=== PATIENT | female | born 2000 | race Hispanic/Latino ===

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

== ENCOUNTER 2020-05-26 16:51 | Day surgery (SDC) | payer OTHER ==
[2020-05-26] MEDS ORDERED: hydrALAZINE 20 MG/ML VIAL SLOW IVP PRN (18:17)
--- NOTE | 2020-05-26 19:28 | ULT ---
LIMITED OB ULTRASOUND: History: 22-week intrauterine . Decreased movement. Spotting. Comparison: None Technique: Sagittal and transverse imaging of the gravid uterus is performed. FINDINGS: Limited evaluation of the cervix. Cervical length is at the lower limits of normal measuring 3.5 cm. There may be a small amount of fluid within the cervix. Presentation: Cephalic Placenta: Posterior. No obvious previa. heart tones: 147 beats/minute. BPD: 5.48 cm, 22 weeks 5 days HC: 20.48 cm, 22 weeks 4 days Abdominal circumference: 17.75 cm, 22 weeks 4 days Femur length: 3.77 cm, 22 weeks 0 days Estimated weight is 502 grams, +/- 74 grams. Amniotic fluid index is 14 cm. Average age by sonography is 22 weeks 3 days. IMPRESSION: 1. Shortened cervix with a small amount of fluid. 2. Single intrauterine gestation with heart tones. 3. Average age by sonography is 22 weeks 3 days. 4. Posterior placenta. Limited evaluation for the presence or absence of previa. POS: [facility]
--- NOTE | 2020-05-27 | SS ---
DATE OF ADMISSION: 05/26/2020 DATE OF DISCHARGE: 05/26/2020 LABOR AND DELIVERY TRIAGE NOTE. REGULAR PHYSICIAN: Elizabeth Batres MD EVALUATING PHYSICIAN: Armando Levi MD. CHIEF COMPLAINT: Decreased movement, spotting. HISTORY OF PRESENT ILLNESS: Ms. Freedman is a 20-year-old white G1, P0 with an estimated date of confinement of 09/26/2020, who presents complaining of decreased movement over the last 24 hours. Of note also is the fact that she reported spotting after intercourse 4 days ago. At the present time, she denies active vaginal bleeding or leakage of fluid. Her care has been with Dr. Batres and has been reportedly uncomplicated. PAST MEDICAL HISTORY: None. PAST SURGICAL HISTORY: None. CURRENT MEDICATIONS: vitamins. ALLERGIES: NO KNOWN ALLERGIES. SOCIAL HISTORY: Denies tobacco, alcohol, or drug use. FAMILY HISTORY: Unremarkable. REVIEW OF SYSTEMS: Denies nausea, vomiting, fever, chills, ruptured membranes or heavy vaginal bleeding at present. PHYSICAL EXAMINATION: VITAL SIGNS: In triage her vital signs are stable. She is afebrile. GENERAL: She is pleasant and in no distress. ABDOMEN: Soft, nontender, and gravid. heart tones are detected. No significant uterine activity seen. IMAGING: Ultrasound is obtained secondary to her history of bleeding. CARITO is 14. heart tones of 147 are noted and the fetus is in the vertex presentation with a posterior placenta. Cervical exam is performed after ultrasound and it is noted to be closed and long and firm to my digital exam. No blood is seen. ASSESSMENT: 1. A 22 and 3/7th week intrauterine . 2. No evidence of bleeding at this time. 3. Reassuring testing tonight. PLAN: The nature of movement of this early in was discussed with the patient in general. She was told that she is likely to feel her baby most active after her meals and late in the evenings. She understands and has a scheduled followup with Dr. Batres. Job ID: [id number] [facility]
== END 2020-05-26 19:15 | disposition home health service (06) ==
LOC: L&D/OP 16:51
PROVIDERS: ATTEND Obstetrics & Gynecology
DX: O36.8120 Decreased fetal movements, second trimester, not applicable or unspecified (principal); O26.852 Spotting complicating pregnancy, second trimester; Z3A.22 22 weeks gestation of pregnancy
CPT/HCPCS: 76815; 99282

== ENCOUNTER 2020-06-17 11:15 | Emergency (ER) | payer OTHER ==
[2020-06-18 14:16] LABS: SARS-CoV-2 MS2 Positive; SARS-CoV-2 N Gene Negative; SARS-CoV-2 S Gene Negative; SARS-CoV-2 by NAA Not Detected (NotDetected); SARS-CoV-2 orf1ab Negative
== END 2020-06-17 11:42 | disposition home or self-care (01) ==
LOC: ERS 11:15
DX: Z20.828 Contact with and (suspected) exposure to other viral communicable diseases (principal)
CPT/HCPCS: 87635; 99283; U0003

== ENCOUNTER 2020-09-14 04:47 | Inpatient (IN) | payer OTHER ==
[2020-09-14 05:30] VITALS: BMI 35.2
[2020-09-14] MEDS ORDERED: Ondansetron PF 4 MG/2 ML Vial IVP PRN ×2 (06:18→18:21)
[2020-09-14] MEDS ORDERED: Methylergonovine 0.2 MG/ML VIAL IM PRN (06:18)
[2020-09-14] MEDS ORDERED: NS / Oxytocin 40 units/1000ml 1,000 ML IV PRN (06:18)
[2020-09-14] MEDS ORDERED: Promethazine HCl 25 MG/ML VIAL IM PRN ×2 (06:18→18:21)
[2020-09-14] MEDS ORDERED: Butorphanol Tartrate 1 MG/ML VIAL SLOW IVP PRN (06:18)
[2020-09-14] MEDS ORDERED: Carboprost 250 MCG/ML AMP IM PRN (06:18)
[2020-09-14] MEDS ORDERED: Misoprostol 200 MCG TAB PR PRN (06:18)
[2020-09-14] MEDS ORDERED: Ibuprofen 800 MG TAB PO PRN (06:18)
[2020-09-14] MEDS ORDERED: Lidocaine 1% (PF) 30 ML VIAL SC PRN (06:18)
[2020-09-14] MEDS ORDERED: Diphenoxylate HCl/Atropine Tablet PO PRN ×2 (06:18)
[2020-09-14] MEDS ORDERED: hydrALAZINE 20 MG/ML VIAL SLOW IVP PRN (06:18)
--- NOTE | 2020-09-14 06:24 | PDOC.LDHP ---
Labor and Delivery H&P Chief complaint: loss of fluid HPI: [address] Calderón. Here for SROM at 0352. No VB. LOF while going into toilet that was not urine. Good FM. No real CTX Current gestational age (weeks): 38 (2 days) Dating criteria: last menstrual period Grav: 1 Current complications: none Abnormal US findings: No Current medications: pre-joanna vitamins Allergies/Adverse Reactions: Allergies Allergy/AdvReac Type Severity Reaction Status Date / Time No Known Allergies Allergy Verified 09/14/20 05:22 - Physical Exam Vital signs reviewed and normal: yes (137/70at BP max, afebrile) General: NAD Lungs: CTAB Abdomen: gravid Extremeties: no edema FHT: category 1 [place] contractions every: rare - Vaginal Exam cm dilated: 0 (to FT) Effacement: 75% Station: -2 - Assessment L&D Assessment: term rupture in membranes (PROM at early term. GBS negative.) - Plan Plan: admit to L&D, cervical ripening, labor augmentation if indicated, anesthesia consult for pain management, other (I have notified Dr calderón who has confirmed recipt. Cytotec for ripeniung. Plan reviewed with patient by me at bedside)
--- NOTE | 2020-09-14 06:25 | PDOC.LDHP ---
Labor and Delivery H&P Chief complaint: loss of fluid HPI: 20yo @ 38.2wks by 1T dorothy presents for leakage of fluid. Woke up at 0352, felt leakage of fluid, went to restroom and had large gush of clear fluid followed by continuous leakage of fluid since. Endorses good movement, no vaginal bleeding, sparse ctx. Increased physiologic vaginal discharge. No dysuria, hematuria, vaginal burning, CUEN[place], vision changes, SOB, CP, Abd pain. Current gestational age (weeks): 38 (38.2) Due date: 09/26/20 Dating criteria: first trimester ultrasound Grav: 1 Para: 0 OB History Details: G1 Current complications: none Past Medical History: none Current medications: pre-joanna vitamins Previous surgical history: none Allergies/Adverse Reactions: Allergies Allergy/AdvReac Type Severity Reaction Status Date / Time No Known Allergies Allergy Verified 09/14/20 05:22 Social history: none - Physical Exam Vital signs reviewed and normal: yes General: NAD, resting Heart: RRR Lungs: CTAB Abdomen: gravid Extremeties: no edema FHT: category 1 (accels, no deccels, moderate variability) [place] contractions every: intermittent - Vaginal Exam cm dilated: 0 (pooled, clear fluid on spec exam) Effacement: 75% (80) Station: -2 - OB Labs Blood type: A RH: positive Antibody Screen: negative HIV: negative RPR: negative HEPSAg: negative 1 hour GCT: negative GBS: negative Urine drug screen: negative Rubella: immune Additional Labs: 3T Hb 9.0 - Assessment L&D Assessment: term rupture in membranes - Plan Plan: admit to L&D -: 20yo @ 38.2wks by 1T dorothy presents for leakage of fluid. #Term, SIUP, SROM - History c/w SROM with large gush of clear fluid followed by continuous LOF - Spec exam with large amount of clear fluid and pooling in posterior fornix - Grossly rupture - SVE at admission closed/80/-2 - Will admit for term SROM, begin cytotec IOL - Dr. Batres notified - GBS negative PCP: Radha Dispo: Admit for SROM, begin cytotec IOL. Above plan discussed with Dr. Piper, who agrees with plan.
[2020-09-14] MEDS: Lactated Ringer's 1,000 ML IV SCH ×3 (06:30→18:16)
[2020-09-14] MEDS ORDERED: Misoprostol 100 MCG TAB VAG SCH (06:30)
[2020-09-14 07:06] LABS: Hemoglobin 10.2 g/dL (12.0-16.0); Mean Corpuscular HGB CONC 33.5 g/dL (32.0-36.0); Mean Corpuscular Hemoglobin 27.2 pg (25.0-35.0); Mean Corpuscular Volume 81.1 fL (78.0-98.0); Mean Platelet Volume 8.8 fL (7.4-10.4); Platelet Count 201 thou/uL (130-400); RBC Distribution Width 17.8 % (11.5-14.5); Red Blood Cell (RBC) Count 3.74 mill/uL (4.00-5.20); White Blood Cell (WBC) Count 7.8 thou/uL (4.8-10.8)
[2020-09-14 07:52] LABS: Syphilis Antibody Nonreactive (Nonreactive); Syphilis Antibody Index 0.05 S/CO (<1.00 Non-Reactive)
[2020-09-14 07:53] LABS: HBSAg Index 0.14 S/CO (0-0.99); Hep B Surf Ag Non-Reactive S/CO (NonReactive)
[2020-09-14] MEDS: Misoprostol 100 MCG TAB VAG SCH ×3 (10:40→18:50)
[2020-09-14 12:46] LABS: SARS-CoV-2 MS2 Positive; SARS-CoV-2 N Gene Negative; SARS-CoV-2 S Gene Negative; SARS-CoV-2 by NAA Not Detected (NotDetected); SARS-CoV-2 orf1ab Negative
[2020-09-14] MEDS ORDERED: Terbutaline Sulfate 1 MG/ML VIAL ONE (13:29)
[2020-09-14] MEDS ORDERED: Terbutaline Sulfate 1 MG/ML VIAL SC SCH (14:15)
[2020-09-14] MEDS ORDERED: Fentanyl 4 mcg/Bup 0.1% Cadd 100 ML ONE (17:50)
[2020-09-14] MEDS ORDERED: Fentanyl 100 MCG/2 ML VIAL ONE (18:01)
[2020-09-14] MEDS ORDERED: Lactated Ringer's 500 ML IV PRN (18:21)
[2020-09-14] MEDS ORDERED: EPHEDRINE 25 MG/5 ML SYRINGE SLOW IVP PRN (18:21)
[2020-09-14] MEDS ORDERED: Naloxone HCl 0.4 mg/ml Vial IVP PRN ×2 (18:21)
[2020-09-14] MEDS ORDERED: diphenhydrAMINE 50 MG/ML VIAL IVP PRN (18:21)
[2020-09-14] MEDS ORDERED: Acetaminophen 325 MG TAB PO PRN (18:21)
[2020-09-14] MEDS ORDERED: Communication Order-Pharmacy FS SCH (18:30)
[2020-09-14] MEDS ORDERED: Fentanyl 4 mcg/Bupivacaine 0.1% Cassette 100 ML EPIDURAL SCH ×2 (18:30)
[2020-09-14] MEDS ORDERED: NS w/ Oxytocin 10 units 500 ML ONE (23:39)
--- NOTE | 2020-09-15 00:36 | PDOC.OPDEL ---
OB Operative/Delivery Note Delivery Dr/Surgeon: Gisel Pre-Delivery Diagnosis: active labor Procedure/Post Delivery Dx: spontaneous vaginal delivery Weeks gestation: 38 Anesthesia: epidural - Findings A - 1 min: 8 - 5 min: 9 - Additional Findings/Plan Placenta delivered: spontaneous Repaired Obstetrical Laceration: 1st degree Estimated blood loss: 100 ml qbl
[2020-09-15] MEDS ORDERED: Benzocaine-Menthol 82.5 ML CAN TOP PRN (00:37)
[2020-09-15] MEDS ORDERED: hydrALAZINE 20 MG/ML VIAL SLOW IVP PRN (00:37)
[2020-09-15] MEDS ORDERED: Preparation H Ointment 28 GM TUBE PR PRN (00:37)
[2020-09-15] MEDS ORDERED: Bisacodyl 10 MG SUPP PR PRN (00:37)
[2020-09-15] MEDS ORDERED: diphenhydrAMINE 25 MG CAP PO PRN (00:37)
[2020-09-15] MEDS ORDERED: traMADol HCl 50 MG TAB PO PRN ×2 (00:37→00:47)
[2020-09-15] MEDS ORDERED: Milk Of Magnesia 30 ML UDCUP PO PRN (00:37)
[2020-09-15] MEDS ORDERED: Lanolin Ointment 7 GM TUBE TOP PRN (00:37)
[2020-09-15] MEDS ORDERED: NS / Oxytocin 40 units/1000ml 1,000 ML IV SCH (00:45)
[2020-09-15] MEDS: Misoprostol 100 MCG TAB VAG SCH (02:50)
[2020-09-15] MEDS: Ibuprofen 800 MG TAB PO SCH ×3 (04:02→21:30)
--- NOTE | 2020-09-15 07:24 | PDOC.PP ---
Post Progress Note Post Day #: 0-1 PO intake tolerated: yes Flatus: yes Ambulation: yes Vital Signs (12 hours) Temp Pulse Resp BP 09/15/20 04:29 98.1 F 74 16 106/58 L 09/15/20 03:30 99.0 F 91 16 99/50 L 09/15/20 02:30 98.1 F 71 16 141/77 H Weight Weight 180 lb - Physical Examination Abdominal: lochia, no distention, appropriately TTP Extremities: negative homans (B) Result Diagrams: 09/14/20 06:56 Additional Labs: Post Labs Hep Bs Antigen Non-Reactive S/CO (NonReactive) 09/14/20 06:56 Blood Type A POSITIVE 09/14/20 06:56 - Assessment/Plan Post day 0-1. Doing well. Routine care. Anticiapte discharge 09/16....
[2020-09-15] MEDS: Ferrous Sulfate 325 MG TAB PO SCH ×2 (08:50→17:12)
[2020-09-15] MEDS ORDERED: Adacel (T-DAP) 0.5 ML SYRINGE IM ONE (09:00)
[2020-09-15] MEDS: Docusate Calcium (SURFAK) 240 MG CAP PO SCH ×3 (10:28→21:29)
[2020-09-15] MEDS: Prenatal Vitamin 1 TAB PO SCH ×2 (10:28→15:24)
[2020-09-16] MEDS: Ibuprofen 800 MG TAB PO SCH ×2 (05:24→13:40)
[2020-09-16 08:15] VITALS: BP 116/59; TEMP 98.1
[2020-09-16] MEDS: Ferrous Sulfate 325 MG TAB PO SCH ×2 (09:07→16:11)
[2020-09-16] MEDS: Docusate Calcium (SURFAK) 240 MG CAP PO SCH (09:07)
[2020-09-16] MEDS: Prenatal Vitamin 1 TAB PO SCH (09:07)
--- NOTE | 2020-09-16 16:24 | PDOC.PP ---
Post Progress Note Post Day #: 1 PO intake tolerated: yes Flatus: yes Ambulation: yes Vital Signs (12 hours) Temp Pulse Resp BP Pulse Ox 09/16/20 08:14 98.1 F 81 20 116/59 L 97 09/16/20 05:15 98.0 F 72 15 121/70 Weight Weight 180 lb - Physical Examination Abdominal: no distention, appropriately TTP Extremities: negative homans (B) Result Diagrams: 09/14/20 06:56 Additional Labs: Post Labs Hep Bs Antigen Non-Reactive S/CO (NonReactive) 09/14/20 06:56 Blood Type A POSITIVE 09/14/20 06:56 - Assessment/Plan Post day 1-2---doing well.discharge home. F/u in 6 weeks.
== END 2020-09-16 17:15 | disposition home or self-care (01) | DRG 807 ==
LOC: L&D/OP 04:47 → L&D 06:30 → 3SW 09-15 02:24
PROVIDERS: ADMIT Obstetrics & Gynecology; ATTEND Obstetrics & Gynecology
PROC: 10E0XZZ Delivery of Products of Conception, External Approach (ICD-10-PCS; principal; 2020-09-15)
PROC: 0HQ9XZZ Repair Perineum Skin, External Approach (ICD-10-PCS; 2020-09-15)
DX: O70.0 First degree perineal laceration during delivery (principal); Z37.0 Single live birth; Z3A.38 38 weeks gestation of pregnancy; Z20.828 Contact with and (suspected) exposure to other viral communicable diseases
CPT/HCPCS: 36415; 51702; 85027; 86780; 86850; 86900; 86901; 87340; 87635; 99285; J0595; J1200; J2590; J3010; J3105; U0003